=== PATIENT | male | born 1985 | race Caucasian/White ===

== ENCOUNTER 2023-08-25 08:53 | Outpatient (CLI) | payer OTHER, SELFPAY | END 2023-08-25 08:54 | disposition home or self-care (01) | PROVIDERS: Visit Provider Family Medicine | DX: Z00.00 Encounter for general adult medical examination without abnormal findings (principal); Z13.6 Encounter for screening for cardiovascular disorders; Z13.1 Encounter for screening for diabetes mellitus; Z83.3 Family history of diabetes mellitus; Z76.89 Persons encountering health services in other specified circumstances | CPT/HCPCS: 80053; 80061 ==